=== PATIENT | male | born 1985 | race Caucasian/White ===

== ENCOUNTER 2018-04-24 01:30 | Emergency (ER) | payer BC ==
--- NOTE | 2018-04-24 01:46 | EDM.PDOC ---
ED HPI GENERAL MEDICAL PROBLEM - General Stated Complaint: RACING HEARTBEAT Time Seen by Provider: 04/24/18 01:46 Source of Information: Reports: Patient History Limitations: Reports: No Limitations - History of Present Illness INITIAL COMMENTS - FREE TEXT/NARRATIVE: Comment complains of palpitations. Lasted about 5 minutes, associated with tingling of the arms but no chest pain. He has a history of anxiety, and atrial fibrillation previously. - Related Data Allergies Allergy/AdvReac Type Severity Reaction Status Date / Time clonazepam [From Klonopin] Allergy Hives Verified 04/24/18 02:22 venom-wasp [wasp venom] Allergy Swelling Verified 04/24/18 02:22 Home Meds: Home Meds EPINEPHrine [Epipen] 0.3 mg IM ONETIME PRN 05/10/16 [History] Past Medical History Cardiovascular History: Reports: Other (See Below) Other Cardiovascular History: HX OF CARDIOVASCULAR DISORDER Gastrointestinal History: Reports: Chronic Diarrhea Psychiatric History: Reports: Anxiety Endocrine/Metabolic History: Reports: Obesity/BMI 30+ Dermatologic History: Reports: Other (See Below) Other Dermatologic History: ACNE - Infectious Disease History Infectious Disease History: Reports: Chicken Pox - Past Surgical History Musculoskeletal Surgical History: Reports: Other (See Below) Social & Family History - Caffeine Use Caffeine Use: Reports: None ED ROS GENERAL - Review of Systems Review Of Systems: ROS reveals no pertinent complaints other than HPI. ED EXAM, GENERAL - Physical Exam Exam: See Below Exam Limited By: No Limitations General Appearance: Alert, WD/WN, No Apparent Distress Nose: Normal Inspection Throat/Mouth: Normal Inspection Head: Atraumatic Neck: Normal Inspection Respiratory/Chest: No Respiratory Distress Cardiovascular: Normal Peripheral Pulses EKG INTERPRETATION EKG Date: 04/24/18 Rhythm: NSR Course - Vital Signs Last Recorded V/S: Last Vital Signs Temp 98 F 04/24/18 01:30 Pulse 98 04/24/18 01:30 Resp 16 04/24/18 02:10 BP 127/74 04/24/18 02:10 Pulse Ox 100 04/24/18 02:10 - Orders/Labs/Meds Orders: Active Orders 24 hr Category Date Time Status EKG Documentation Completion [RC] ASDIRECTED Care 04/24/18 01:52 Active EKG 12 Lead [EK] Routine Ther 04/24/18 01:38 Ordered Meds: Medications Discontinued Medications Generic Name Dose Route Start Last Admin Trade Name Patricia PRN Reason Stop Dose Admin Lorazepam 1 mg 04/24/18 01:51 04/24/18 01:55 Ativan PO 04/24/18 01:52 1 mg ONETIME ONE Administration Departure - Departure Time of Disposition: 01:46 Disposition: Home, Self-Care 01 Clinical Impression: Hypertension, Palpitations Referrals: Tyrone Beth MD [Primary Care Provider] - Forms: ED Department Discharge Care Plan 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 - Problem List & Annotations (1) Anxiety SNOMED Code(s): 94656807 Code(s): F41.9 - ANXIETY DISORDER, UNSPECIFIED Status: Acute (2) Hypertension SNOMED Code(s): 22677708 Code(s): I10 - ESSENTIAL (PRIMARY) HYPERTENSION Status: Acute Priority: Low (3) Palpitations SNOMED Code(s): 50621315 Code(s): R00.2 - PALPITATIONS Status: Acute - Problem List Review Problem List Initiated/Reviewed/Updated: Yes - My Orders Last 24 Hours: My Active Orders 04/24/18 01:38 EKG 12 Lead [EK] Routine 04/24/18 01:52 EKG Documentation Completion [RC] ASDIRECTED - Assessment/Plan Last 24 Hours: My Active Orders 04/24/18 01:38 EKG 12 Lead [EK] Routine 04/24/18 01:52 EKG Documentation Completion [RC] ASDIRECTED Plan: Lorazepam 1 mg orally. Patient was discharged and advised to see PCP tomorrow.
[2018-04-24] MEDS ORDERED: LORazepam 1 MG Tab PO ONE (01:51)
[2018-04-24 02:28] VITALS: BP 127/74
== END 2018-04-24 02:10 | disposition home or self-care (01) ==
LOC: FB.ED 01:30
DX: R00.2 Palpitations (principal); I10 Essential (primary) hypertension; E66.9 Obesity, unspecified; Z88.8 Allergy status to other drugs, medicaments and biological substances; Z91.030 Bee allergy status
CPT/HCPCS: 93005; 99284; A9270-GY